=== PATIENT | male | born 1975 ===

== ENCOUNTER 2017-07-06 19:03 | Emergency (ER) | payer OTHER ==
[2017-07-06 19:32] VITALS: BP 145/80
--- NOTE | 2017-07-06 20:00 | C.PDOC ---
History Of Present Illness 42 y/o male presents to the ER complaining of sore throat which has been present since the morning. Patient reports he has associated fever and body aches. Patient does not have any other medical complaints. Time Seen by Provider: 07/06/17 19:17 Chief Complaint (Nursing): ENT Problem History Per: Patient History/Exam Limitations: no limitations Onset/Duration Of Symptoms: Hrs Current Symptoms Are (Timing): Still Present Associated Symptoms: Fever, Sore Throat Past Medical History Reviewed: Historical Data, Nursing Documentation, Vital Signs Vital Signs: Last Vital Signs Temp 100 F H 07/06/17 20:07 Pulse 100 H 07/06/17 20:07 Resp 18 07/06/17 20:07 BP 145/80 07/06/17 19:11 Pulse Ox 98 07/06/17 21:12 - Medical History PMH: No Chronic Diseases Surgical History: No Surg Hx Family History: States: No Known Family Hx - Social History Hx Alcohol Use: Yes Hx Substance Use: No - Immunization History Hx Tetanus Toxoid Vaccination: No Hx Influenza Vaccination: No Hx Pneumococcal Vaccination: No Review Of Systems Except As Marked, All Systems Reviewed And Found Negative. Constitutional: Positive for: Fever, Malaise. Negative for: Chills ENT: Positive for: Throat Pain. Negative for: Nose Congestion Physical Exam - Physical Exam Appears: Non-toxic, No Acute Distress Skin: Normal Color, Warm, No Rash Head: Atraumatic, Normacephalic Eye(s): bilateral: Normal Inspection, PERRL Ear(s): Bilateral: Normal Nose: Normal Oral Mucosa: Moist Throat: Erythema, Exudate Neck: Supple Chest: Symmetrical Cardiovascular: Rhythm Regular, No Friction Rub, No Murmur Respiratory: Normal Breath Sounds, No Accessory Muscle Use Gastrointestinal/Abdominal: Normal Exam, Soft, No Tenderness Extremity: Normal ROM Neurological/Psych: Oriented x3, Normal Speech, Normal Cognition, Normal Motor, Normal Sensation Gait: Steady ED Course And Treatment O2 Sat by Pulse Oximetry: 98 (RA) Pulse Ox Interpretation: Normal Medical Decision Making Medical Decision Making: Plan: --Amoxicillin - 500 mg PO --Motrin - 600 mg PO Disposition - Disposition Referrals: [facility] [Outside] Disposition: HOME/ ROUTINE Disposition Time: 19:57 Condition: GOOD Additional Instructions: Follow up with the medical doctor within 1-2 days. return if worsened Prescriptions: Amoxicillin [Amoxil 500 mg Cap] 500 mg PO TID #29 cap Ibuprofen [Motrin] 600 mg PO TID #21 tab predniSONE [Prednisone] 10 mg PO BID #10 tab Instructions: Pharyngitis (ED) Forms: [employer] (Arabic) - Clinical Impression Clinical Impression: Pharyngitis - PA / [employer] / Resident Statement MD/DO has reviewed & agrees with the documentation as recorded. - Scribe Statement The provider has reviewed the documentation as recorded by the Jean Marieibe Doron Mitchell Provider Attestation All medical record entries made by the Jean Marieibaguila were at my direction and personally dictated by me. I have reviewed the chart and agree that the record accurately reflects my personal performance of the history, physical exam, medical decision making, and the department course for this patient. I have also personally directed, reviewed, and agree with the discharge instructions and disposition.
[2017-07-06 20:08] VITALS: PULSE 100; RESP 18; TEMP 100
[2017-07-06 21:11] VITALS: O2SAT 98
== END 2017-07-06 20:07 | disposition home or self-care (01) ==
LOC: C.ER 19:03
DX: J02.9 Acute pharyngitis, unspecified (principal)